=== PATIENT | female | born 1985 | race Two or more races ===

== ENCOUNTER 2018-01-07 20:52 | Outpatient (CLI) | payer MEDICAID ==
[~2018-01-07] VITALS: Ht 165.1 cm; Wt 74.1 kg
[~2018-01-07 20:52] MED LIST: IBUP-1223 PO; OXYC-302 PO
[2018-01-07 22:01] LABS: MICROSCOPIC INDICATED
[2018-01-07] MEDS ORDERED: CALCIUM CARBONATE 500 MG TAB.CHEW ONE (22:39)
[2018-01-07] MEDS ORDERED: CALCIUM CARBONATE 500 MG TAB.CHEW PO PRN (23:00)
== END 2018-01-08 00:10 | disposition home or self-care (01) ==
LOC: LDOP 20:52
PROVIDERS: ATTEND Obstetrics & Gynecology
DX: O26.893 Other specified pregnancy related conditions, third trimester (principal); R10.9 Unspecified abdominal pain; F17.200 Nicotine dependence, unspecified, uncomplicated; Z3A.31 31 weeks gestation of pregnancy
CPT/HCPCS: 59025; 81001; 87086; 99211; G0463

== ENCOUNTER 2018-02-16 03:10 | Inpatient (IN) | payer MEDICAID ==
[~2018-02-16] VITALS: Ht 162.6 cm; Wt 86.0 kg
[2018-02-16] MEDS ORDERED: D5%-LACTATED RINGERS 1,000 ML IV SCH (03:16)
[2018-02-16] MEDS ORDERED: OXYTOCIN 30U/ 0.9% NaCL 500ML 500 ML IV ONE (03:16)
[2018-02-16] MEDS ORDERED: LACTATED RINGERS 1,000 ML IV SCH (03:16)
[2018-02-16] MEDS ORDERED: NEWBORN KIT ONE (03:18)
[2018-02-16] MEDS ORDERED: LIDOCAINE/PF 1%, 30ML ONE (03:19)
[2018-02-16] MEDS ORDERED: OXYTOCIN 30U/ 0.9% NaCL 500ML 500 ML ONE ×2 (03:19→04:52)
[2018-02-16] MEDS ORDERED: OXYTOCIN 10 UNITS/ML, 1ML ONE (03:19)
[2018-02-16] MEDS ORDERED: MISOPROSTOL 200 MCG TABLET ONE (03:19)
[2018-02-16] MEDS ORDERED: ONDANSETRON 2MG/ML, 2ML IVPush PRN (03:30)
[2018-02-16] MEDS ORDERED: CALCIUM CARBONATE 500 MG TAB.CHEW PO PRN ×2 (03:30→04:00)
[2018-02-16] MEDS ORDERED: FENTANYL PF 100 MCG/2ML IVPush PRN (03:30)
[2018-02-16] MEDS ORDERED: METOCLOPRAMIDE 5 MG/ML, 2ML IVPush PRN (03:30)
[2018-02-16 03:43] LABS: BASOPHILS # (AUTO) 0.04 x10^3/uL (0-0.1); BASOPHILS % (AUTO) 0 % (0-1); EOSINOPHILS # (AUTO) 0.03 x10^3/uL (0-0.4); EOSINOPHILS % (AUTO) 0 % (1-7); LYMPHOCYTES # (AUTO) 1.95 x10^3/uL (1-3.4); LYMPHOCYTES % (AUTO) 15 % (22-44); MD NO; MEAN CORPUSCULAR HEMOGLOBIN 24.4 pg (27.0-34.8); MEAN CORPUSCULAR HGB CONC 32.4 g/dL (32.4-35.8); MEAN CORPUSCULAR VOLUME 75.4 fL (80-100); MEAN PLATELET VOLUME 9.7 fL (7.4-10.4); MONOCYTES # (AUTO) 0.75 x10^3/uL (0.2-0.8); MONOCYTES % (AUTO) 6 % (2-9); NEUTROPHILS # (AUTO) 10.25 x10^3/uL (1.8-6.8); NEUTROPHILS % (AUTO) 79 % (42-75); PLATELET COUNT 277 x10^3/uL (130-400); RED BLOOD COUNT 3.29 x10^6/uL (3.82-5.3); RED CELL DISTRIBUTION WIDTH 19.1 % (9.6-15.2)
[2018-02-16] MEDS ORDERED: OXYTOCIN 30U/ 0.9% NaCL 500ML 500 ML IV SCH (03:57)
[2018-02-16] MEDS ORDERED: ACETAMINOPHEN 325 MG TABLET PO PRN (04:00)
[2018-02-16] MEDS ORDERED: OXYTOCIN 10 UNITS/ML, 1ML IM PRN (04:00)
[2018-02-16] MEDS ORDERED: METHYLERGONOVINE 0.2 MG/ML IM PRN (04:00)
[2018-02-16] MEDS ORDERED: DIPH,PERTUSS(ACELL),TET VAC/PF NC IM-VACC PRN (04:00)
[2018-02-16] MEDS ORDERED: ONDANSETRON 2MG/ML, 2ML IV PRN (04:00)
[2018-02-16] MEDS ORDERED: OXYcodone/APAP 5/325MG TABLET PO PRN ×2 (04:00)
[2018-02-16] MEDS: OXYTOCIN 30U/ 0.9% NaCL 500ML 500 ML IV SCH ×3 (05:08→13:08)
[2018-02-16 06:00] VITALS: BP 137/82
[2018-02-16 06:11] LABS: ALANINE AMINOTRANSFERASE 9 U/L (12-78); ALBUMIN 1.8 g/dL (3.4-5.0); ANION GAP 8 mmol/L (5-15); BILIRUBIN, DIRECT 0.1 mg/dL (0.1-0.2); CHLORIDE 109 mmol/L (98-107)
[2018-02-16 06:13] LABS: ALKALINE PHOSPHATASE 217 U/L (45-117); BILIRUBIN,TOTAL 0.3 mg/dL (0.2-1.0); TOTAL PROTEIN 5.2 g/dL (6.4-8.2)
[2018-02-16 07:25] VITALS: BP 129/51
[2018-02-16] MEDS: DOCUSATE 100 MG CAPSULE PO PRN (10:46)
[2018-02-16] MEDS: IBUPROFEN 800 MG TABLET PO PRN (10:46)
[2018-02-16] MEDS: PRENATAL VIT/IRON/FA 1 EACH TABLET PO SCH (10:46)
[2018-02-16 12:00] VITALS: BP 151/80
[2018-02-16 12:12] LABS: MEAN CORPUSCULAR HEMOGLOBIN 23.4 pg (27.0-34.8); MEAN CORPUSCULAR HGB CONC 31.5 g/dL (32.4-35.8); MEAN CORPUSCULAR VOLUME 74.5 fL (80-100); MEAN PLATELET VOLUME 9.5 fL (7.4-10.4); PLATELET COUNT 241 x10^3/uL (130-400); RED BLOOD COUNT 3.46 x10^6/uL (3.82-5.3); RED CELL DISTRIBUTION WIDTH 19.8 % (9.6-15.2)
[2018-02-16 12:34] LABS: BASOPHILS % (AUTO) 0 % (0-1); EOSINOPHILS # (AUTO) 0.01 x10^3/uL (0-0.4); EOSINOPHILS % (AUTO) 0 % (1-7); LYMPHOCYTES # (AUTO) 1.79 x10^3/uL (1-3.4); LYMPHOCYTES % (AUTO) 11 % (22-44); MD SCAN; MONOCYTES # (AUTO) 0.79 x10^3/uL (0.2-0.8); MONOCYTES % (AUTO) 5 % (2-9); NEUTROPHILS % (AUTO) 84 % (42-75)
[2018-02-16 13:23] LABS: CREATININE,URINE RANDOM 67.6 mg/dL
[2018-02-16 16:30] VITALS: BP 146/79
[2018-02-16 19:55] VITALS: BP 132/87
[2018-02-17] VITALS: BP 134/84
[2018-02-17] MEDS: IBUPROFEN 800 MG TABLET PO PRN ×2 (03:57→15:54)
[2018-02-17 04:00] VITALS: BP 128/85
[2018-02-17 07:59] VITALS: BP 131/81
[2018-02-17 09:13] LABS: MICROSCOPIC INDICATED
[2018-02-17] MEDS: PRENATAL VIT/IRON/FA 1 EACH TABLET PO SCH (11:17)
[2018-02-17 12:00] VITALS: BP 129/78
[2018-02-17 20:00] VITALS: BP 144/84
[2018-02-18 00:30] VITALS: BP 136/78
[2018-02-18 04:00] VITALS: BP 125/75
[2018-02-18 09:00] VITALS: BP 156/90
[2018-02-18] MEDS: PRENATAL VIT/IRON/FA 1 EACH TABLET PO SCH (09:48)
[2018-02-18] MEDS: IBUPROFEN 800 MG TABLET PO PRN ×2 (09:48)
[2018-02-18] MEDS: DOCUSATE 100 MG CAPSULE PO PRN ×2 (09:48)
[2018-02-18 11:05] VITALS: BP 136/80
[2018-02-18] MEDS ORDERED: OXYC-302 PO (11:11)
[2018-02-18] MEDS ORDERED: IBUP-1222 PO (11:11)
[2018-02-18] MEDS ORDERED: DOCU-131 PO (11:19)
[2018-02-18] MEDS ORDERED: FERR325T5 PO (11:19)
== END 2018-02-18 14:15 | disposition home or self-care (01) | DRG 775 ==
LOC: LDOP 03:10 → LDIP 03:15 → 2NW 05:39
PROVIDERS: ADMIT Obstetrics & Gynecology; ATTEND Obstetrics & Gynecology
PROC: 10E0XZZ Delivery of Products of Conception, External Approach (ICD-10-PCS; principal; 2018-02-16)
PROC: 10907ZC Drainage of Amniotic Fluid, Therapeutic from Products of Conception, Via Natural or Artificial Opening (ICD-10-PCS; 2018-02-16)
DX: O99.02 Anemia complicating childbirth (principal); D64.9 Anemia, unspecified; Z3A.37 37 weeks gestation of pregnancy; Z37.0 Single live birth
CPT/HCPCS: 36415; 80053; 81001; 82248; 82570; 84156; 84550; 85025; 86592; 86762; 86850; 86900; 87340; 87806; G0475; J2590

== ENCOUNTER 2020-01-21 03:10 | Outpatient (CLI) | payer MEDICAID ==
[~2020-01-21] VITALS: Ht 165.1 cm; Wt 80.0 kg
[~2020-01-21 03:10] MED LIST changes: +DOCU-131 PO; +FERR325T5 PO; +IBUP-1222 PO
[2020-01-21 03:49] VITALS: BP 121/84
[2020-01-21 03:58] LABS: MICROSCOPIC INDICATED
[2020-01-21 04:00] LABS: AMPHETAMINE SCREEN, URINE Negative (Negative); BARBITURATE SCREEN, URINE Negative (Negative); BENZODIAZEPINE SCREEN, URINE Negative (Negative); CANNABINOID SCREEN, URINE Negative (Negative); COCAINE SCREEN, URINE Negative (Negative); METHADONE SCREEN, URINE Negative (Negative); OPIATE SCREEN, URINE Negative (Negative)
[2020-01-21 04:03] LABS: BASOPHILS # (AUTO) 0.03 x10^3/uL (0-0.1); BASOPHILS % (AUTO) 0 % (0-1); EOSINOPHILS # (AUTO) 0.01 x10^3/uL (0-0.4); EOSINOPHILS % (AUTO) 0 % (1-7); LYMPHOCYTES # (AUTO) 1.51 x10^3/uL (1-3.4); LYMPHOCYTES % (AUTO) 15 % (22-44); MD NO; MEAN CORPUSCULAR HEMOGLOBIN 26.5 pg (27.0-34.8); MEAN CORPUSCULAR HGB CONC 32.2 g/dL (32.4-35.8); MEAN CORPUSCULAR VOLUME 82.2 fL (80-100); MEAN PLATELET VOLUME 8.8 fL (7.4-10.4); MONOCYTES # (AUTO) 0.38 x10^3/uL (0.2-0.8); MONOCYTES % (AUTO) 4 % (2-9); NEUTROPHILS # (AUTO) 7.92 x10^3/uL (1.8-6.8); NEUTROPHILS % (AUTO) 80 % (42-75); PLATELET COUNT 297 x10^3/uL (130-400); RED CELL DISTRIBUTION WIDTH 16.7 % (9.6-15.2)
[2020-01-21] MEDS ORDERED: NITR100C56 PO (04:21)
[2020-01-21] MEDS ORDERED: NITROFURANTOIN (MACROBID) 100 MG CAPSULE ONE (04:25)
[2020-01-21] MEDS ORDERED: NITROFURANTOIN (MACROBID) 100 MG CAPSULE PO ONE (04:30)
== END 2020-01-21 04:48 | disposition home or self-care (01) ==
LOC: LDOP 03:10
PROVIDERS: ATTEND Obstetrics & Gynecology
DX: O26.893 Other specified pregnancy related conditions, third trimester (principal); R60.9 Edema, unspecified; Z3A.37 37 weeks gestation of pregnancy
CPT/HCPCS: 36415; 59025; 80307; 81001; 85025; 86592; 86762; 86850; 86900; 87086; 87340; 87806; G0475

== ENCOUNTER 2020-02-09 22:27 | Inpatient (IN) | payer MEDICAID ==
[~2020-02-09 22:27] MED LIST changes: +NITR100C56 PO
[2020-02-09] MEDS ORDERED: FENTANYL/BUPIV./NS/PF 250 ML EPIDCONT SCH (22:46)
[2020-02-09] MEDS ORDERED: OXYTOCIN 30U/ 0.9% NaCL 500ML 500 ML IV ONE (22:47)
[2020-02-09] MEDS ORDERED: AMPICILLIN 2 GM in SODIUM CHLORIDE 0.9% 100 ML IVPB STA (22:50)
[2020-02-09] MEDS ORDERED: LIDOCAINE 1%, 20ML ONE (22:56)
[2020-02-09] MEDS ORDERED: OXYTOCIN 30U/ 0.9% NaCL 500ML 500 ML ONE (22:56)
[2020-02-09] MEDS ORDERED: MISOPROSTOL 200 MCG TABLET ONE (22:56)
[2020-02-09] MEDS ORDERED: TERBUTALINE 1 MG/ML, 1ML IVPush PRN (23:00)
[2020-02-09] MEDS: AMPICILLIN 1 GM in SODIUM CHLORIDE 0.9% 100 ML IVPB SCH (23:00)
[2020-02-09] MEDS ORDERED: TERBUTALINE 1 MG/ML, 1ML SQ PRN (23:00)
[2020-02-09 23:25] LABS: BASOPHILS # (AUTO) 0.02 x10^3/uL (0-0.1); BASOPHILS % (AUTO) 0 % (0-1); EOSINOPHILS # (AUTO) 0.02 x10^3/uL (0-0.4); EOSINOPHILS % (AUTO) 0 % (1-7); LYMPHOCYTES # (AUTO) 1.54 x10^3/uL (1-3.4); LYMPHOCYTES % (AUTO) 13 % (22-44); MD NO; MEAN CORPUSCULAR HEMOGLOBIN 25.2 pg (27.0-34.8); MEAN CORPUSCULAR HGB CONC 31.7 g/dL (32.4-35.8); MEAN CORPUSCULAR VOLUME 79.5 fL (80-100); MEAN PLATELET VOLUME 8.6 fL (7.4-10.4); MONOCYTES # (AUTO) 0.57 x10^3/uL (0.2-0.8); MONOCYTES % (AUTO) 5 % (2-9); NEUTROPHILS % (AUTO) 83 % (42-75); PLATELET COUNT 263 x10^3/uL (130-400); RED BLOOD COUNT 3.27 x10^6/uL (3.82-5.3); RED CELL DISTRIBUTION WIDTH 17.7 % (9.6-15.2)
[2020-02-09] MEDS: FENTANYL PF 100 MCG/2ML IV PRN (23:30)
[2020-02-09] MEDS ORDERED: FENTANYL PF 100 MCG/2ML ONE (23:37)
[2020-02-10] MEDS: FENTANYL PF 100 MCG/2ML IV PRN
[2020-02-10] MEDS ORDERED: FENTANYL PF 100 MCG/2ML IVPush PRN (00:30)
[2020-02-10 00:50] LABS: AMPHETAMINE SCREEN, URINE Negative (Negative); BARBITURATE SCREEN, URINE Negative (Negative); BENZODIAZEPINE SCREEN, URINE Negative (Negative); CANNABINOID SCREEN, URINE Negative (Negative); COCAINE SCREEN, URINE Negative (Negative); METHADONE SCREEN, URINE Negative (Negative); OPIATE SCREEN, URINE Negative (Negative)
[2020-02-10] MEDS: OXYTOCIN 30U/ 0.9% NaCL 500ML 500 ML IV SCH ×4 (01:32→05:50)
[2020-02-10] MEDS ORDERED: OXYTOCIN 30U/ 0.9% NaCL 500ML 500 ML IV SCH (01:32)
[2020-02-10] MEDS ORDERED: ACETAMINOPHEN 325 MG TABLET PO PRN (02:00)
[2020-02-10] MEDS ORDERED: CALCIUM CARBONATE 500 MG TAB.CHEW PO PRN (02:00)
[2020-02-10] MEDS ORDERED: SIMETHICONE 80 MG CHEW TAB PO PRN (02:00)
[2020-02-10] MEDS ORDERED: OXYcodone IR 5MG TABLET PO PRN (02:00)
[2020-02-10] MEDS ORDERED: IBUPROFEN 800 MG TABLET PO PRN (02:00)
[2020-02-10] MEDS ORDERED: METHYLERGONOVINE 0.2 MG/ML IM PRN (02:00)
[2020-02-10] MEDS ORDERED: ONDANSETRON 2MG/ML, 2ML IV PRN (02:00)
[2020-02-10] MEDS ORDERED: OXYcodone/APAP 5/325MG TABLET PO PRN (02:00)
[2020-02-10] MEDS ORDERED: BISACODYL 10 MG SUPP PR PRN (02:00)
[2020-02-10] MEDS ORDERED: OXYTOCIN 10 UNITS/ML, 1ML IM PRN (02:00)
[2020-02-10] MEDS: AMPICILLIN 1 GM in SODIUM CHLORIDE 0.9% 100 ML IVPB SCH (03:00)
[2020-02-10 03:30] VITALS: BP 116/68
[2020-02-10 07:40] VITALS: BP 119/79
[2020-02-10] MEDS: PRENATAL VIT/IRON/FA 1 EACH TABLET PO SCH (08:30)
[2020-02-10] MEDS: DOCUSATE 100 MG CAPSULE PO PRN (08:31)
[2020-02-10 09:53] LABS: MEAN CORPUSCULAR HEMOGLOBIN 24.9 pg (27.0-34.8); MEAN CORPUSCULAR HGB CONC 31.1 g/dL (32.4-35.8); MEAN PLATELET VOLUME 8.3 fL (7.4-10.4); PLATELET COUNT 246 x10^3/uL (130-400); RED BLOOD COUNT 3.23 x10^6/uL (3.82-5.3); RED CELL DISTRIBUTION WIDTH 17.5 % (9.6-15.2)
[2020-02-10 10:32] LABS: BASOPHILS # (AUTO) 0.01 x10^3/uL (0-0.1); BASOPHILS % (AUTO) 0 % (0-1); EOSINOPHILS # (AUTO) 0.01 x10^3/uL (0-0.4); EOSINOPHILS % (AUTO) 0 % (1-7); LYMPHOCYTES # (AUTO) 1.43 x10^3/uL (1-3.4); LYMPHOCYTES % (AUTO) 10 % (22-44); MD MORPH REVIEW ONLY; MONOCYTES # (AUTO) 0.66 x10^3/uL (0.2-0.8); MONOCYTES % (AUTO) 5 % (2-9); NEUTROPHILS # (AUTO) 12.19 x10^3/uL (1.8-6.8); NEUTROPHILS % (AUTO) 85 % (42-75)
[2020-02-10 10:33] LABS: ANISOCYTOSIS 1+; HYPOCHROMIA 1+; POLYCHROMASIA 1+
[2020-02-10 10:34] LABS: <PLATELET ESTIMATE> ADEQUATE; <PLT MORPHOLOGY> NORMAL PLT MORPH
[2020-02-10 11:58] VITALS: BP 128/74
[2020-02-10 19:17] VITALS: BP 135/82
[2020-02-11 00:10] VITALS: BP 125/73
[2020-02-11 07:45] VITALS: BP 127/79
[2020-02-11] MEDS: PRENATAL VIT/IRON/FA 1 EACH TABLET PO SCH (08:13)
[2020-02-11] MEDS: DOCUSATE 100 MG CAPSULE PO PRN (08:13)
[2020-02-11] MEDS ORDERED: IBUP-1223 PO (13:02)
[2020-02-11] MEDS ORDERED: DOCU-131 PO (13:02)
[2020-02-11] MEDS ORDERED: OXYC-302 PO (13:02)
[2020-02-11] MEDS ORDERED: FERR325T23 PO (13:04)
== END 2020-02-11 16:45 | disposition home or self-care (01) | DRG 807 ==
LOC: LDOP 22:27 → LDIP 22:52 → 2NW 02-10 03:11
PROVIDERS: ADMIT Obstetrics & Gynecology; ATTEND Obstetrics & Gynecology
PROC: 10E0XZZ Delivery of Products of Conception, External Approach (ICD-10-PCS; principal; 2020-02-10)
DX: O99.824 Streptococcus B carrier state complicating childbirth (principal); Z37.0 Single live birth; Z3A.38 38 weeks gestation of pregnancy
CPT/HCPCS: 36415; 80307; 85025; 86592; 86850; 86900; G0378; J0290; J3010